=== PATIENT | male | born 1965 | race Caucasian/White ===

== ENCOUNTER 2018-04-27 08:01 | Day surgery (SDC) | payer BC ==
[~2018-04-27] VITALS: Ht 180.3 cm; Wt 113.4 kg
[~2018-04-27 08:01] MED LIST: BACTRIM,SEPT1 TABLET PO; BYSTOLIC5 MG PO; FLOMAX0.4 MG PO; VICODIN 5-3001 EACH PO; ZOFRAN ODT8 MG PO
[2018-04-27 08:51] VITALS: BP 162/88
[2018-04-27 13:45] VITALS: BP 143/83
[2018-04-27 14:24] VITALS: BP 141/78
== END 2018-04-27 14:30 | disposition home or self-care (01) ==
LOC: SDC 08:01
PROVIDERS: Urology
DX: N20.1 Calculus of ureter (principal); I10 Essential (primary) hypertension; Z87.891 Personal history of nicotine dependence
CPT/HCPCS: 82365 90; 93005; C1876; J0131; J0690; J1100; J2250; J2405; J3010; J7643